=== PATIENT | female | born 1995 ===

== ENCOUNTER 2017-03-12 17:01 | Emergency (ER) | payer OTHER, BC, MEDICAID ==
[2017-03-12 17:19] VITALS: BP 110/71; PULSE 83; RESP 17; TEMP 99.1; O2SAT 98
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
== END 2017-03-12 18:10 | disposition home or self-care (01) ==
LOC: C.ER 17:01
DX: S40.021A Contusion of right upper arm, initial encounter (principal); S13.4XXA Sprain of ligaments of cervical spine, initial encounter; V89.2XXA Person injured in unspecified motor-vehicle accident, traffic, initial encounter